=== PATIENT | male | born 1965 | race Caucasian/White ===

== ENCOUNTER 2017-06-09 11:26 | Emergency (ER) | payer MEDICAID ==
[~2017-06-09] VITALS: Ht 181.6 cm; Wt 113.0 kg
[~2017-06-09 11:26] MED LIST: HYDR-3965 PO; LIDO700A32 TOP; PENI500T2 PO
[2017-06-09 12:01] VITALS: BP 151/96
[2017-06-09] MEDS ORDERED: BUPIVAcaine/PF 2.5 mg/ml (0.25%) 30ml vial IJ ONE (12:15)
[2017-06-09] MEDS ORDERED: LIDOcaine 1.5% w/epinephrine 1:200,000 5ml ampul IJ ONE (12:15)
[2017-06-09] MEDS ORDERED: amox tr/potassium clavulanate 875/125mg TAB PO ONE (12:50)
[2017-06-09] MEDS ORDERED: AMOX-422 PO (12:55)
[2017-06-09] MEDS ORDERED: HYDR-3965 PO (13:18)
== END 2017-06-09 13:32 | disposition home or self-care (01) ==
LOC: ER 11:27
DX: K04.7 Periapical abscess without sinus (principal); I10 Essential (primary) hypertension; Z59.0 Homelessness; Z56.0 Unemployment, unspecified; Z60.2 Problems related to living alone
CPT/HCPCS: 41800; 99283; A6266; J3490